=== PATIENT | male | born 1960 | race Caucasian/White ===

== ENCOUNTER 2018-09-22 07:59 | Inpatient (IN) ==
[2018-09-22] MEDS ORDERED: Vancomycin Inj 1,000 MG in Sodium Chlor 0.9% Inj 250 ML IV.SIG SCH (09:00)
[2018-09-22] MEDS ORDERED: Chlorhexidine 4% Topical 120 APPLIC/120 ML Bottle TOPICAL SCH (09:00)
[2018-09-22] MEDS ORDERED: Metoprolol Tartrate 25 MG Tablet PO ONE (09:02)
[2018-09-22] MEDS ORDERED: Chlorhexidine Gluconate 2% 1 Pack (2 Cloths) TOPICAL ONE (09:02)
[2018-09-22] MEDS ORDERED: Sodium Chlor 0.9% Inj 500 ML IV.SIG SCH (10:00)
[2018-09-22] MEDS ORDERED: Ketamine Inj 50 MG/5 ML Syringe IV.PUSH ONE (10:02)
[2018-09-22] MEDS ORDERED: ceFAZolin 2 GM Premix Inj 2 GM/50 ML PIGGYBACK IV.SIG ONE (10:57)
[2018-09-22] MEDS ORDERED: Betamethasone Sod Phos/Acetate Inj 30 MG/5 ML Vial IM ONE (11:00)
[2018-09-22] MEDS ORDERED: Gelatin 12 MM/7 MM Topical Foam ONE (11:00)
--- NOTE | 2018-09-22 12:06 | P.DCO ---
- Physical Therapy Physical Therapy: Gait training (3 times per week for 2 weeks) S/P Spinal Fusion: Gait training with walker - Nursing RN: 3 days/week x 2 weeks Dressing changes: Daily dressing change (Dry dressing change daily) - Certification Need for Home Health services: I have seen patient Colt Bose on 09/22/18. My clinical findings support the need for the requested home health care services because: Need for Home Health Services: High risk of falls Homebound Certification: I certify that my clinical findings support that this patient is homebound because: Homebound Certification: Post-op weakness, Unsteady gait/balance
[2018-09-22] MEDS ORDERED: Morphine Inj 4 MG/ML Vial IV.PUSH PRN (12:07)
[2018-09-22] MEDS ORDERED: Post-op Orders (for Pharmacy) OTHER STA (12:07)
[2018-09-22] MEDS ORDERED: Bisacodyl 10 MG Supp RECTAL PRN (12:07)
[2018-09-22] MEDS ORDERED: Temazepam 15 MG Capsule PO PRN (12:07)
[2018-09-22] MEDS ORDERED: ceFAZolin 2 GM IV; once IV.SIG ONE (14:15)
--- NOTE | 2018-09-22 14:33 | P.OP ---
- Preoperative Diagnosis (1) Herniated nucleus pulposus, L4-5 left Preoperative Diagnosis: Herniated nucleus pulposus L4-5, left, foraminal, extruded. Left L4 radiculopathy. 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 Date of procedure: 09/22/18 Procedure: Lumbar laminectomy left L4-5 with subtotal left facet resection L4-5. Resection foraminal disc herniation, extruded. Posterior spinal fusion, L4-5 lateral transverse process technique. Posterior spinal segmental instrumentation, L4-5. Post lateral interbody fusion, L4-5 from the left. Placement of interbody cage, L4-5. Bone grafting of the lumbar spine Anesthesia: GETA Surgeon: Thomas Abdi MD Outcomes Analyst: AALIYAH Montero PA-C Operation and Findings: EBL: 200 ml NOTE: Dina Montero and Rachel Hargrove PA-C were present for the entire surgical procedure as my assistant boiler operator. In my medical opinion their skill and care was necessary for proper management of this patient INDICATIONS: This patient is a 55-year-old white male with severe weakness into the right leg and pain with loss of sensation and loss of function. Investigative studies shows evidence of a foraminal disc herniation with an extruded fragment in the middle of the foramen to the left at L4-5 creating severe left L4 nerve root compromise. He presents for surgical treatment. Because of the anticipated need of subtotal facet resection for decompression, we anticipate fusion at this level. INSTRUMENTATION: Spine wave screws, staxx cage PROCEDURE: The patient brought to the operating room and anesthetized the supine position. The patient positioned prone on the Oneal frame on the Colt table. All pressure points are protected. The back was scrubbed with alcohol followed by Hibiclens followed by ChloraPrep and draped sterilely and antibiotics were given within a routine time window. A timeout was done. Lateral radiographic images used to identify the proper level for the procedure. Compared care for the preoperative studies. Skin markings were made anticipating surgical treatment. A left paramedian incision was made. The lamina and facet joint was exposed. We used a dilating retractor which was positioned over this region. The microscope was rolled into the field for visualization. A high-speed bur was used to take the lamina down and doing a subtotal facet resection. The exiting and crossing nerve roots were completely decompressed. There were 2 large extruded fragments. One at the disc space and a mid foramen almost far lateral position and one directly under the exiting L4 nerve root in the mid foraminal position extending underneath the pedicle. A total discectomy was accomplished. The disc space was prepared. All cartilaginous material from the disc space was removed. A combination of demineralized bone matrix and Nucel stem cells were mixed together on the back table.. These were injected into the disc space. The cage was then placed according to music producer's recommendation and deployed. Position was satisfactory. Additional bone graft was placed into the disc space. The outer edge of the facet joint was identified and prepared. Under fluoroscopic images, a bur was used to gain entrance into the pedicle followed by placement of a blunt probe, an awl and placement of proper length screws. Each screw was charged with electric current there are no abnormal potentials registered in either lower extremity. A proper length jonathan was fitted and attached and tightened according to music producer's recommendation. The wound was irrigated copiously. Bone grafting was placed along the lateral gutter in the region of the transverse process across this level. This was closed in layers with #1 Vicryl, 2-0 Vicryl and running intradermal 3-0 Vicryl followed by Steri-Strips and benzoin. On the contralateral side a separate exposure was made. The outer edge of the facet joints were identified. A bur was used to gain entrance into the pedicle followed by placement of a probe and proper length screws. Each screw was charged with electric current and no abnormal potentials registered in either lower extremity. The wound was irrigated copiously. Bone graft placed along the transverse process across this level. It was closed in layers using #1 Vicryl, 2-0 Vicryl and running intradermal 3-0 Vicryl followed by Steri-Strips and benzoin. Intraoperative radiographs were obtained. No complication was appreciated. The patient had a sterile dressing applied. The patient was awakened and taken to recovery room in satisfactory condition. FINDINGS: There was severe L4 nerve root compromise. The decompression was very satisfactory. This would not have been possible without a very significant facet resection allowing adequate exposure for accomplishing the decompression both within the foramen, and outside the foramen and extending into the canal.
[2018-09-22] MEDS ORDERED: *Meperidine Inj 25 MG/ML Vial PERIprocedural Use ONLY ONE (15:12)
[2018-09-22] MEDS ORDERED: *morphine SULFATE 4 MG/ML PERIprocedure ONLY ONE ×3 (15:16→15:24)
[2018-09-22] MEDS ORDERED: fentaNYL Citrate Inj 100 MCG/2 ML Ampul ONE (15:17)
--- NOTE | 2018-09-22 15:25 | XR ---
EXAM DATE: 09/22/2018 2:56 PM EST AGE/SEX: 57 years / Male INDICATIONS: Fusion L4,L5 with screw and jonathan placement. CLINICAL DATA: This is the patient's initial encounter. Patient reports that signs and symptoms have been present for 1 day and indicates a pain score of Nonresponsive. MEDICAL/SURGICAL HISTORY: None. None. COMPARISON: [facility], XR SPINE LUMBAR (MIN 4 VIEWS), 02/21/2015. . FINDINGS: AP and lateral coned down views of the lower lumbar spine were obtained intraoperatively using the [employer] trix camera demonstrate that the patient is status post fusion at the L4-5 level with bilateral pedic le screws and posterior fixation rods. There is bone graft material in the interspace with 3 metallic markers. The alignment is anatomic. CONCLUSION: Status post fusion at the L4-5 level. Electronically signed by: Gerardo House MD 09/22/2018 3:24 PM EST
[2018-09-22] MEDS ORDERED: *HYDROmorphone PF Inj 1 MG/ML Ampul PERIprocedural Use ONLY ONE ×3 (15:31→15:43)
[2018-09-22] MEDS ORDERED: HYDROmorphone PF Inj 1 MG/ML Ampul ONE ×2 (15:59→16:01)
[2018-09-22] MEDS: HYDROmorphone PF Inj 1 MG/ML Ampul IV.PUSH PRN ×3 (16:10→19:44)
[2018-09-22] MEDS ORDERED: Gabapentin 400 MG Capsule PO SCH (21:00)
[2018-09-22] MEDS: oxyCODONE/Acetaminophen 10/325 Tablet PO PRN (21:30)
[2018-09-22] MEDS: Multivitamin/Minerals Therapeutic Tablet PO SCH (21:30)
[2018-09-22] MEDS: Senna/Docusate Sodium 8.6/50 MG Tablet PO SCH (21:30)
[2018-09-22] MEDS: ceFAZolin 1 GM Premix Inj 1 GM/50 ML FROZ.PIGGY IV.SIG SCH (22:37)
[2018-09-23] MEDS: oxyCODONE/Acetaminophen 10/325 Tablet PO PRN ×4 (02:02→15:00)
[2018-09-23] MEDS: ceFAZolin 1 GM Premix Inj 1 GM/50 ML FROZ.PIGGY IV.SIG SCH ×2 (04:40→09:19)
[2018-09-23 08:37] VITALS: RESP 16; TEMP 98.2
[2018-09-23] MEDS: Senna/Docusate Sodium 8.6/50 MG Tablet PO SCH (09:14)
[2018-09-23] MEDS: Multivitamin/Minerals Therapeutic Tablet PO SCH (09:19)
[2018-09-23 12:27] VITALS: O2SAT 97
--- NOTE | 2018-09-23 13:27 | P.PNOP ---
Subjective Interval history: Moderate low back pain. "Worse than expected." Yesterday he wanted to go home same day as surgery. Today he states he is glad he didn't. He still has some left leg pain. Urinating well. No CP or SOB. Physical Exam Vital signs: Vital Signs 09/22/18 15:06 09/22/18 15:30 09/22/18 15:45 Temperature 97.6 F Pulse Rate 100 H 90 86 Respiratory Rate 18 18 18 Blood Pressure 120/71 113/72 113/73 Pulse Oximetry 100 98 98 09/22/18 16:00 09/22/18 16:15 09/22/18 16:30 Temperature Pulse Rate 90 90 102 H Respiratory Rate 18 18 18 Blood Pressure 108/71 116/68 104/59 L Pulse Oximetry 98 98 98 09/22/18 16:45 09/22/18 16:55 09/22/18 20:00 Temperature 97.8 F 97.2 F L 97.1 F L Pulse Rate 100 H 93 H 80 Respiratory Rate 18 20 17 Blood Pressure 104/59 L 111/61 111/59 L Pulse Oximetry 98 94 L 92 L 09/23/18 00:00 09/23/18 04:00 09/23/18 06:27 Temperature 97.0 F L 97.8 F Pulse Rate 81 91 H Respiratory Rate 17 18 18 Blood Pressure 116/75 106/67 Pulse Oximetry 97 97 09/23/18 08:00 09/23/18 12:00 Temperature 98.2 F 98.2 F Pulse Rate 83 78 Respiratory Rate 16 16 Blood Pressure 103/60 116/66 Pulse Oximetry 94 L 97 Intake & Output 09/22/18 09/23/18 09/23/18 18:59 06:59 18:59 Intake Total 1999 700 / 700 Output Total 200 / 200 900 / 900 Balance 1800 / 1800 -200 / -200 Weight 82.8 kg 80 kg Intake: IV 100 / 100 Ancef 1 GM Premix Inj 1 gm In 100 / 100 50 ml @ 100 mls/hr IV.SIG Q6H [facility] Rx#:[id number] Oral 600 / 600 Anesthesia Amount 1999 Output: Urine 900 / 900 Estimated Blood Loss 200 / 200 Other: Weight On Admission 77.9 kg Narrative: Sitting up in bed NAD L/S Dressing intact, mild drainage, no erythema, +muscle spasm, +motor ehl distal, +sens +nvi, neg homans bilaterally - Constitutional no acute distress Results - Imaging Impressions Lumbar Spine X-Ray 09/22/18 00:00 CONCLUSION: Status post fusion at the L4-5 level. - Procedures Lumbar laminectomy and posterior fusion L45 Assessment and Plan - Ortho Post Op Day # 1 - Assessment and Plan pod#1 s/p Lami/Fusion L45 Doing well but more pain than expected. Did 'ok' with PT today, walked slowly. Some light headedness. I spoke with PT to have them return for an additional eval/visit. If comfortable with PT, consider late discharge home today. Hold dressing changes unless saturated. PO pain meds as needed. Ice to lumbar spine bid. Walker for gait assistance. F/U in 2 weeks as scheduled.
--- NOTE | 2018-09-23 13:28 | P.DS ---
Date of admission: 09/22/18 07:59 Primary care physician: Sam Jovel MD Attending physician on discharge: Thomas Abdi Anticipated date of discharge: 09/23/18 DS: Diagnosis - Discharge Diagnosis (1) Herniated nucleus pulposus, L4-5 left Status: Acute DS: Medications - Discharge Medications Prescriptions: hydrocodone-acetaminophen 1 tab PO Q4H PRN #42 tab PRN Reason: Acute Pain DS: Summary - Time Spent with Patient Total time spent providing and/or coordinating discharge services: - Quality: VTE Deep Vein Thrombosis/Pulmonary Embolism Present on Admission: No Exam Vital signs: Vital Signs 09/22/18 15:06 09/22/18 15:30 09/22/18 15:45 Temperature 97.6 F Pulse Rate 100 H 90 86 Respiratory Rate 18 18 18 Blood Pressure 120/71 113/72 113/73 Pulse Oximetry 100 98 98 09/22/18 16:00 09/22/18 16:15 09/22/18 16:30 Temperature Pulse Rate 90 90 102 H Respiratory Rate 18 18 18 Blood Pressure 108/71 116/68 104/59 L Pulse Oximetry 98 98 98 09/22/18 16:45 09/22/18 16:55 09/22/18 20:00 Temperature 97.8 F 97.2 F L 97.1 F L Pulse Rate 100 H 93 H 80 Respiratory Rate 18 20 17 Blood Pressure 104/59 L 111/61 111/59 L Pulse Oximetry 98 94 L 92 L 09/23/18 00:00 09/23/18 04:00 09/23/18 06:27 Temperature 97.0 F L 97.8 F Pulse Rate 81 91 H Respiratory Rate 17 18 18 Blood Pressure 116/75 106/67 Pulse Oximetry 97 97 09/23/18 08:00 09/23/18 12:00 Temperature 98.2 F 98.2 F Pulse Rate 83 78 Respiratory Rate 16 16 Blood Pressure 103/60 116/66 Pulse Oximetry 94 L 97 Intake & Output 09/22/18 09/23/18 09/23/18 18:59 06:59 18:59 Intake Total 1999 / 1999 700 / 700 Output Total 200 / 200 900 / 900 Balance 1800 / 1800 -200 / -200 Weight 82.8 kg 80 kg Intake: IV 100 / 100 Ancef 1 GM Premix Inj 1 gm In 100 / 100 50 ml @ 100 mls/hr IV.SIG Q6H [facility] Rx#:[id number] Oral 600 / 600 Anesthesia Amount 1999 Output: Urine 900 / 900 Estimated Blood Loss 200 / 200 Other: Weight On Admission 77.9 kg Results Procedures completed during hospitalization: Lumbar laminectomy and posterior fusion L45 - Impressions ITS Impressions Lumbar Spine X-Ray 09/22/18 00:00 CONCLUSION: Status post fusion at the L4-5 level. Discharge Plan - Discharge Disposition Patient Disposition: /Home Health Service - Discharge Condition Condition: Good - Discharge Order Discharge Orders: Discharge Order (Routine); Ordered 09/23/18 Ordered By: Thomas Abdi - Physicians Team Primary Care Provider: Sam Jovel Attending Provider: Thomas Abdi Other Providers: [facility] - Rxs /Orders / Referrals /Forms Prescriptions: New hydrocodone-acetaminophen 7.5-325 mg Tablet 1 tab PO Q4H PRN (Reason: Acute Pain) Qty: 42 RF: 0 Continue duloxetine 30 mg Capsule,Delayed Release(Dr/Ec) 30 mg PO HS gabapentin 800 mg Tablet 800 mg PO HS Referrals: Sam Jovel MD [Primary Care Provider] - See Instructions - Discharge Instructions Patient Printed Instructions: Laminectomy (DC)
[2018-09-23 15:55] VITALS: BP 107/59; PULSE 85
== END 2018-09-23 16:05 | disposition home health service (06) ==
LOC: HSDI 07:59 → N06 17:04
PROVIDERS: ADMIT Orthopaedic Surgery Orthopaedic Surgery of the Spine; ATTEND Orthopaedic Surgery Orthopaedic Surgery of the Spine